=== PATIENT | male | born 1960 | race Two or more races ===

== ENCOUNTER 2022-05-18 15:47 | Outpatient (REF) | payer OTHER, SELFPAY ==
--- NOTE | ~2022-05-18 | XR_ITS ---
EXAMINATION: XR BILATERAL KNEE CLINICAL INFORMATION: Pain. COMPARISON: Right knee 06/24/2009. TECHNIQUE: 4 views each knee. FINDINGS: Right Knee: There is mild reduction in the medial and patellofemoral compartment joint space without any bony erosive changes, loose bodies or joint effusion. There is mild lateral compartment and superior patellar enthesophytes. There are no loose bodies or joint effusion seen. Left Knee: There is mild reduction in the tricompartment joint space with periarticular spurring medial compartment. No abnormal joint effusion, loose bodies or bony erosive changes. No visible acute fracture or dislocation seen. XR/XR knee RT 4V IMPRESSION: Mild degenerative changes both knees without any acute fracture or loose bodies. There is mild superior patellar and medial compartment periarticular spurring.
--- NOTE | ~2022-05-18 | XR_ITS ---
EXAMINATION: XR BILATERAL KNEE CLINICAL INFORMATION: Pain. COMPARISON: Right knee 06/24/2009. TECHNIQUE: 4 views each knee. FINDINGS: Right Knee: There is mild reduction in the medial and patellofemoral compartment joint space without any bony erosive changes, loose bodies or joint effusion. There is mild lateral compartment and superior patellar enthesophytes. There are no loose bodies or joint effusion seen. Left Knee: There is mild reduction in the tricompartment joint space with periarticular spurring medial compartment. No abnormal joint effusion, loose bodies or bony erosive changes. No visible acute fracture or dislocation seen. XR/XR knee LT 4V IMPRESSION: Mild degenerative changes both knees without any acute fracture or loose bodies. There is mild superior patellar and medial compartment periarticular spurring.
== END 2022-05-18 15:48 | disposition home or self-care (01) ==
LOC: HO.XRAY 15:47
PROVIDERS: PCP Registered Nurse; Visit Provider Registered Nurse
DX: M25.562 Pain in left knee (principal); M25.561 Pain in right knee
CPT/HCPCS: 73564

== ENCOUNTER 2022-05-28 16:26 | Outpatient (REF) | payer OTHER, SELFPAY ==
[2022-05-28 17:37] LABS: Alanine Aminotransferase 20 U/L (0-40); Albumin Level 4.5 g/dL (3.5-5.0); Alkaline Phosphatase 112 U/L (39-117); Aspartate Amino Transferase 20 U/L (5-37); Bilirubin Direct 0.2 mg/dL (0.0-0.5); Bilirubin Total 0.3 mg/dL (0.0-1.0); Total Protein 8.2 g/dL (6.5-8.0)
[2022-05-28 17:50] LABS: Phenytoin Dilantin 8.4 ug/mL (10.0-20.0)
== END 2022-05-28 16:27 | disposition home or self-care (01) ==
LOC: HO.LAB 16:26
PROVIDERS: Visit Provider Psychiatry & Neurology Neurology
DX: G40.909 Epilepsy, unspecified, not intractable, without status epilepticus (principal); Z79.899 Other long term (current) drug therapy
CPT/HCPCS: 36415; 80076; 80184; 80185

== ENCOUNTER 2024-02-16 15:22 | Outpatient (REF) | payer OTHER, SELFPAY ==
[2024-02-16 17:52] LABS: MANUAL DIFF FLAG NO
[2024-02-16 17:58] LABS: Basophils Absolute Auto 0.1 X10*3/uL (0.0-0.2); Basophils Percent Auto 0.7 % (0-2); Eosinophils Absolute Auto 0.2 X10*3/uL (0.0-0.4); Eosinophils Percent Auto 3.2 % (0-4); Hematocrit 41.2 % (42.0-52.0); Hemoglobin 14.2 g/dl (14.0-18.0); Imm Gran Abs Auto 0.01 X10*3/uL (0.00-0.03); Imm Gran Pct Auto 0.1 % (0.0-0.4); Lymphocytes Absolute Auto 2.7 X10*3/uL (1.2-4.9); Lymphocytes Percent Auto 35.1 % (20-40); Mean Corpuscular HGB Conc 34.5 g/dl (31.0-36.0); Mean Corpuscular Hemoglobin 30.8 pg (27.0-33.0); Mean Corpuscular Volume 89.4 fL (80.0-98.0); Mean Platelet Volume 11.4 fL (9.4-12.4); Monocytes Absolute Auto 0.7 X10*3/uL (0.1-1.2); Monocytes Percent Auto 8.6 % (2-11); Neutrophils Absolute Auto 3.9 x10*3/uL (2.0-8.3); Neutrophils Percent Auto 52.3 % (45-73); Platelet Count 186 X10*3/uL (160-400); Red Blood Count 4.61 X10*6/uL (4.60-5.80); Red Cell Distribution Width 13.7 % (11.0-16.0); White Blood Count 7.5 X10*3/uL (4.8-10.8)
[2024-02-16 18:33] LABS: Phenytoin Dilantin 11.3 ug/mL (10.0-20.0)
[2024-02-16 18:55] LABS: Alanine Aminotransferase 30 U/L (0-40); Albumin Level 4.1 g/dL (3.5-5.0); Alkaline Phosphatase 100 U/L (39-117); Anion Gap 13 (12-20); Aspartate Amino Transferase 24 U/L (5-37); Bilirubin Total 0.5 mg/dL (0.0-1.0); Blood Urea Nitrogen 11 mg/dL (9-16); Calcium 9.2 mg/dL (8.4-10.2); Carbon Dioxide 27 mmol/L (22-29); Chloride 104 mmol/L (96-108); Cholesterol 218 mg/dL (<200); Estimated Glomerular Filt Rate > 60; HDL Cholesterol 49 mg/dL (>40); LDL Cholesterol Calculated 133 mg/dL (<100); Potassium 3.8 mmol/L (3.3-5.1); Sodium 140 mmol/L (135-145); TSH reflex Free T4 0.98 uIU/mL (0.32-4.0); Total Protein 7.7 g/dL (6.5-8.0); Triglycerides 180 mg/dL (<150)
[2024-02-16 19:17] LABS: Glucose Random 85 mg/dL (60-115)
== END 2024-02-16 15:23 | disposition home or self-care (01) ==
LOC: HO.CHCLDS 15:22
PROVIDERS: Visit Provider Internal Medicine
DX: R56.9 Unspecified convulsions (principal)
CPT/HCPCS: 36415; 80053; 80061; 80185; 84443; 85025

== ENCOUNTER 2025-02-12 15:46 | Outpatient (REF) | payer MEDICAID, SELFPAY ==
--- OUTSIDE RECORDS SUMMARY | 2025-02-12 18:27 | XMS_ITS | Encounter Summary ---
Author Organization [employer] Address [address] [facility] 7t [place] [address] Care Team Providers Care It Auditor Name Role Phone Florian Dias MD Primary Care Prov ider Encounter Details Date Type Department Care Team (Late st Contact Info) Description 12/13/2023 Telephone [facility] CHC MED & PEDS [address] [place], [place] [phone] Florian Dias MD [address] [place], [place] [phone] Social History Tobacco Use Types Packs/Day Years Used Date Smoking Tobacco: Never Assessed Sex and Gender Information Value Date Recorded Sex Assigned at Male 09/07/2022 10:20 AM EDT Legal Sex Male 10:20 AM EDT Gender Identity Male 09/07/2022 10:20 AM EDT Sexual Orientation Straight 09/07/2022 10 :20 AM EDT documented as of this encounter Miscellaneous Notes * Telephone Encounter - Brenda Mcneill RN - 12/14/2023 10:56 AM EST Placed call to pharmacy regarding message below. Pharmacy states no issues with phenobarbital rx and pt is due for a refill. They will fill rx and let pt know. * Telephone Encounter - Aysha Hunt - 12/13/2023 4:23 PM EST Tc from pt states pharmacy is requesting a call from PCP in regards to PHENobarbital (Luminal) 32.4MG tablet documented in this encounter Plan of Treatment Not on file documented as of this encounter Visit Diagnoses Not on filedocumented in this encounter Care Teams It Auditor Relationship Specialty Start Date End Date Florian Dias MD [address] [place] [address] PCP - General Internal Medicine 10/11/23 documented as of this encounter
--- OUTSIDE RECORDS SUMMARY | 2025-02-12 18:27 | XMS_ITS | Encounter Summary ---
Author Organization [employer] Address [address] [facility] 7t [place] [address] Care Team Providers Care Beamer Helper Name Role Phone Florian Dias MD Primary Care Prov ider Encounter Details Date Type Department Care Team ([facility] st Contact Info) Description 08/14/2024 Orders Only [facility] CHC MED & PEDS [address] [place], [place] [phone] Florian Dias MD [address] [place], [place] [phone] Social History Tobacco Use Types Packs/Day Years Used Date Smoking Tobacco: Never Assessed Depression Answer Date Recorded Patient Health Questionnaire-9 Score 0 07/05/2024 Patient Health Questionnaire-9 Score 0 07/05/2024 Last PHQ-9: Questionnaire Data Not on file 0 07/05/2024 Housing Stability Answer Date Recorded What is your housing situation today? I have ashly lainez 07/05/[address] you li ve. Do you have problems with any of the following? None of the above 07/05/2024 Food Insecurity Answer Date Recorded Within the past 12 months, y ou worried that your food would run out before you got money to buy more: Never True 07/05/2024 Within the past 12 months,th e food you bought just didn't last and you didn't have enough money to get more: Never True Transportation Answer Date Recorded In the past 12 months, has l ack of transportation kept you from medical appts, meetings, work or from getting things needed for daily living? No 07/05/2024 Utilities Answer Date Recorded In the past 12 months, has t he electric, gas, oil or water company threatened to shut off services in your home? No 07/05/2024 Depression Answer Date Recorded Patient Health Questionnaire-2 Score 0 07/05/2024 Internet Access Answer Date Recorded Internet Access Q1 Yes 07/10/2024 Internet Access Q2 Not on file 07/10/2024 Sex and Gender Information Value Date Recorded Sex Assigned at Male 09/07/2022 10:20 AM EDT Legal Sex Male 10:20 AM EDT Gender Identity Male 09/07/2022 10:20 AM EDT Sexual Orientation Straight 09/07/2022 10 :20 AM EDT documented as of this encounter Plan of Treatment Not on file documented as of this encounter Visit Diagnoses Not on filedocumented in this encounter Additional Health Concerns Assessment Noted Time PHQ-9 Depression Total Score: 0 07/05/20 24 10:20 AM EDT documented as of this encounter Care Teams Beamer Helper Relationship Specialty Start Date End Date Florian Dias MD [address] [place] [phone] PCP - General Internal Medicine 10/11/23 documented as of this encounter
--- OUTSIDE RECORDS SUMMARY | 2025-02-12 18:27 | XMS_ITS | Encounter Summary ---
Author Organization [employer] Address [address] [facility] 7t [place] [address] Care Team Providers Care Candy Mixer Name Role Phone Florian Dias MD Primary Care Prov ider Reason for Visit * Reason Onset Date Comments Med Refill 02/14/2024 Encounter Details Date Type Department Care Team ([facility] st Contact Info) Description 02/14/2024 Telephone [facility] CHC MED & PEDS [address] [place], [place] [phone] Florian Dias MD [address] [place] [address] Med Refill Social History Tobacco Use Types Packs/Day Years Used Date Smoking Tobacco: Never Assessed Sex and Gender Information Value Date Recorded Sex Assigned at Male 09/07/2022 10:20 AM EDT Legal Sex Male 10:20 AM EDT Gender Identity Male 09/07/2022 10:20 AM EDT Sexual Orientation Straight 09/07/2022 10 :20 AM EDT documented as of this encounter Miscellaneous Notes * Telephone Encounter - Jo Schwab - 02/22/2024 10:21 AM EDT Please sign chart note of 02/15 to proceed with referral, thank you. * Telephone Encounter - Sona Fu - 02/14/2024 9:32 AM EDT TC from pt requesting medication refill. Medications needing refill : phenytoin ER (Dilantin) 100 MG capsule PHENobarbital (Luminal) 32.4 MG tablet To be sent to: [facility] [id number] documented in this encounter Plan of Treatment Not on file documented as of this encounter Visit Diagnoses Not on filedocumented in this encounter Care Teams Candy Mixer Relationship Specialty Start Date End Date Florian Dias MD [address] [place] [address] [place] [address] PCP - General Internal Medicine 10/11/23 documented as of this encounter
--- OUTSIDE RECORDS SUMMARY | 2025-02-12 18:27 | XMS_ITS | Clinical Summary ---
Author Organization [employer] Address [address] [facility] 7t [place] [address] Care Team Providers Care Strap Making Machine Operator Name Role Phone Florian Dias MD Primary Care Prov ider Allergies No known active allergies Medications Artificial Tears 1.4 % ophthalmic solution PLACE 2 DROPS IN EACH EYE TWICE A DAY NEEDED FOR DRY EYES 11/13/2021 Active metoprolol tartrate (Lopressor) 25 MG tablet Take 25 mg by mouth in the morning and at bedtime. 11/19/2021 Active allopurinol (Zyloprim) 300 MG tablet Take 300 mg by mouth in the morning. 03/04/2022 Active rosuvastatin (Crestor) 20 MG tablet Take 1 tablet (20 mg) by mouth at bedtime. 90 tablet 3 03/16/2024 03/16/20 25 Active PHENobarbital 32.4 MG tabletIndicatio ns:Seizure (CMS/HCC) TAKE 1 TABLET BY MOUTH THREE TIMES EVERY DAY 270 tablet 05/08/2024 Active phenytoin ER (Dilantin) 100 MG capsuleIndicati ons:Seizure (CMS/HCC) TAKE 2 CAPSULES BY MOUTH TWICE A DAY 360 capsule 05/08/2024 Active Active Problems Problem Noted Date Diagnosed Date Spondylosis of lumbar spine 12/03/2022 Arthritis of both knees 05/21/2022 Coronary arteriosclerosis 03/10/2022 History of myocardial infarction 03/10/2022 Obstructive sleep apnea syndrome 02/24/2022 Seizure disorder 01/31/2022 Assessment & Plan (07/05/2024 10:39 PM EDT): No further episode, on phenytoin and phenobarbital, will refer to neurology he lost follow up Assessment & Plan (03/16/2024 1:32 PM EDT): Followed by neurology, adequate phenytoin levels, continue current treatment Assessment & Plan (02/16/2024 8:01 PM EDT): Will renew phenytoin and phenobarbital, follow up with neurology Tubular adenoma of colon 12/24/2015 Overview (12/03/2022): Needs a repeat colonoscopy in 2019 Assessment & Plan (02/16/2024 8:03 PM EDT): Will refer for colonoscopy, needs to be repeated Gout 04/24/2014 Hyperlipidemia 04/24/2014 Assessment & Plan (07/05/2024 10:40 PM EDT): On rosucastatin 20mg, will order new labs for guidance of therapy Assessment & Plan (03/16/2024 1:33 PM EDT): Patient was off rosuvastatin will restart on 20mg, continue low fat diet, exercise encouraged weight loss, follow up in 3 months for new labs Assessment & Plan (02/16/2024 8:02 PM EDT): Patient is not taking statin, will order new labs for guidance of therapy Back disorder 04/24/2014 Obesity 04/24/2014 Osteoarthritis 04/24/2014 Resolved Problems Problem Noted Date Diagnosed Date Resolved Date Prediabetes 03/05/2022 03/16/2024 Encounters Date Type Department Care Team Description 01/19/2025 Population Health Risk Score [facility] [address] [place] [address] Provider, Population Health Generic from Last 3 Months Social History Tobacco Use Types Packs/Day Years [...] Orientation Straight 09/07/2022 10 :20 AM EDT Last Filed Vital Signs Vital Sign Reading Time Taken Comments Blood Pressure 112/68 03/16/2024 1:24 PM EDT Pulse 76 03/16/2024 1:24 PM EDT Temperature 36.2 ??C (97.2 ??F) 03/16/2024 1:24 PM ED T Respiratory Rate 20 03/16/2024 1:24 PM EDT Oxygen Saturation 98% 02/16/2024 2:16 PM EDT Inhaled Oxygen Concentration - - Weight 104 kg (230 lb) 03/16/2024 1:24 PM EDT Height 175.3 cm (5' 9 ) 03/16/2024 1:24 PM EDT Body Mass Index 33.97 03/16/2024 1:24 PM EDT Plan of Treatment Health Maintenance Due Date Last Done Comments CT Colonography 1961 Colonoscopy 1961 Colorectal Cancer Screening 1961 FIT DNA/Cologuard 1961 FIT 1961 FOBT 1961 Sigmoidoscopy 1961 Alcohol/Substance Use Screening 1973 Tobacco Screening 1973 Pneumococcal Vaccine: 50+ Years (1 of 2 - PCV) 1980 Zoster Vaccines (1 of 2) 2011 RSV Patients and Patients Aged 60 years or older (1 - Risk 60-74 years 1-dose series) 2021 COVID-19 Vaccine (4 - 2023-2 5 season) 2024 01/28/2022, 03/05/2021, 02/12/2021 Influenza Vaccine (#1) 2024 , 10/19/2016, 09/03/2011 DTaP/Tdap/Td Vaccines (3 - T d or Tdap) 01/08/2025 01/08/2015, 07/28/2007 Depression Screening 07/05/2025 07/05/2024, 07/05/2024 SDOH Screening 07/05/2025 07/05/2024 Lipid Panel 02/15/2029 02/16/2024, 03/03/2022 HIV Screening Completed 03/03/2022 Hepatitis C Screening Completed 03/03/2022 HIB Vaccines Aged Out No longer eligi ble based on patient's age to complete this topic HPV Vaccines Aged Out No longer eligi ble based on patient's age to complete this topic Hepatitis A Vaccines Aged Out No long er eligible based on patient's age to complete this topic Hepatitis B Vaccines Aged Out No long er eligible based on patient's age to complete this topic IPV Vaccines Aged Out No longer eligi ble based on patient's age to complete this topic Meningococcal Vaccine Aged Out No cehrri ebnson eligible based on patient's age to complete this topic RSV under 20 months Aged Out No longe r eligible based on patient's age to complete this topic Rotavirus Vaccines Aged Out No longer eligible based on patient's age to complete this topic Procedures Procedure Name Priority Date/Time Associated Diagnosis Comments LIPID PANEL, STANDARD Routine 02/16/2024 3:29 PM EDT Seizure (CMS/HCC) ZZZ HISTORICAL HEPATITIS C AB W/REFL TO HCV RNA, QN, PCR Routine 03/03/2022 3:36 PM EDT HIV 1/2 ANTIGEN/ANTIBODY, FOURTH GENERATION W/RFL Routine 03/03/2022 3:36 PM EDT from Last 3 Months or Most Recently Relevant to Health Maintenance Results * (ABNORMAL) Lipid Panel, Standard (02/16/2024 3:29 PM EDT) Triglycerides 180(H) <150 mg/dL [facility] Comment:Desirable Triglyceri de: less than 150 mg/dLBorderline High Triglyceride 150-199 mg/dLHigh Triglyceride: 200-499 mg/dLVery High Triglyceride: greater than or equal to 5OO mg/dL Cholesterol 218(H) <200 mg/dL [facility] Comment:Desirable Cholestero l: less than 200 mg/dLBorderline High Cholesterol: 200-239 mg/dLHigh Cholesterol: greater than 239 mg/dL LDL Cholesterol Calculated 133(H) <100 mg/dL [facility] Comment:Desirable LDL: less than 100 mg/dLNear Optimal/Above Optimal LDL: 110- 129 mg/dLBorderline High LDL: 130-159 mg/dLHigh LDL: 160-189 mg/dLVery High LDL: greater than or equal to 190 mg/dL HDL Cholesterol 49 >40 mg/dL [facility] Comment:Desirable HDL: great er than 40 mg/dL Note: This HDL assay may give artificially low results in patients with liver disease. Blood Venous blood specimen / Unknown 02/16/2024 3:29 PM EDT 02/16/2024 5:50 PM EDT us Florian Will MD LAB BLOOD ORDERABL ES Final Result [facility] [address] [place] [phone] * HEPATITIS C AB W/REFL TO HCV RNA, QN, PCR (03/03/2022 3:36 PM EDT) HEPATITIS C ANTIBODY NON-REACT DIDI NON-REACT DIDI [facility] INDEX 0.01 <1.00 [facility] Comment: ?? HCV antibody was non-reactive. There is no laboratory ?? evidence of HCV infection. ?? In most cases, no further action is required. However, if recent HCV exposure is suspected, a test for HCV RNA (test code 95325) is suggested. ?? For additional information please refer to http://[employer].Notifo/faq/TWC46x6 (This link is being provided for informational/ educational purposes only.) ?? 03/03/2022 3:36 PM EDT us Renee Farrell CASHIER TUBE ROOM HISTORICAL/NON ORDERABLE L ABS Final Result [facility] [address] * HIV 1/2 ANTIGEN/ANTIBODY,FOURTH GENERATION W/RFL (03/03/2022 3:36 PM EDT) HIV-1/2 ANTIGEN AND ANTIBODIES, 4TH GENERATION W/ REFLEX NON-REACT DIDI NON-REACT DIDI [facility] Comment: HIV-1 antigen and HIV-1/HIV-2 antibodies were not detected. There is no laboratory evidence of HIV infection. ?? PLEASE NOTE: This information has been disclosed to you from records whose confidentiality may be protected by state law. ??If your state requires such protection, then the state law prohibits you from making any further disclosure of the information without the specific written consent of the person to whom it pertains, or as otherwise permitted by law. A general authorization for the release of medical or other information is NOT sufficient for this purpose. ? For additional information please refer to http://[employer].Notifo/faq/ITY518 (This link is being provided for informational/ educational purposes only.) ? The performance of this assay has not been clinically validated in patients less than 2 years old. ?? 03/03/2022 3:36 PM EDT us Renee Farrell CASHIER TUBE ROOM LAB BLOOD ORDERABLES Final Result [facility] [address] [place] [address], from Last 3 Months or Most Recently Relevant to Health Maintenance [place] [address] [place] [address] C3 Care Teams Strap Making Machine Operator Relationship Specialty Start Date End Date Florian Dias MD [address] [place] [phone] PCP - General Internal Medicine 10/11/23
--- OUTSIDE RECORDS SUMMARY | 2025-02-12 18:27 | XMS_ITS | Clinical Summary ---
Author Organization [facility] Address [address] [place] [address] Care Team Providers Care Starchmaker Name Role Phone Angel Brewster MD Primary Care Provider [phone] Social History Tobacco Use Types Packs/Day Years Used Date Smoking Tobacco: Never Assessed Sex and Gender Information Value Date Recorded Sex Assigned at Not on file Legal Sex Male 1:55 PM EST Gender Identity Not on file Sexual Orientation Not on file Plan of Treatment Health Maintenance Due Date Last Done Comments DTaP,Tdap,and Td Vaccines (1 - Tdap) 1980 Pneumococcal Vaccine: 50+ Ye ars (1 of 1 - PCV) 2011 Zoster Vaccines (1 of 2) 2011 Cholesterol Screening (Lipid Panel) 10/07/2022 Colorectal Cancer Screening: Colonoscopy 10/07/2022 Depression Screening 10/07/2022 HIV Screening 10/07/2022 Hepatitis C Screening 10/07/2022 Social Influencers of Health Screening 10/07/2022 COVID-19 Vaccine ( - 2023-2 5 season) 2024 Influenza Vaccine (Season Ended) 2025 RSV Immunization Adult Patie nts (1 - 1-dose 75+ series) 2036 HIB Vaccines Aged Out No longer eligi [...] on patient's age to complete this topic MMR Vaccines Aged Out No longer eligi ble based on patient's age to complete this topic Meningococcal ACWY Vaccine Aged Out N o longer eligible based on patient's age to complete this topic Meningococcal B Vaccine Aged Out No l onger eligible based on patient's age to complete this topic Pneumococcal Vaccine: Pediat rics (0 to 5 Years) and At-Risk Patients (6 to 64 Years) Aged Out No longer eligible b ased on patient's age to complete this topic RSV Immunization Patients Un jacqui 20 months Aged Out No longer eligible b ased on patient's age to complete this topic Varicella Vaccines Aged Out No longer eligible based on patient's age to complete this topic Advance Directives Documents on File Type Date Recorded Patient Manager Commission Expl anation Health Care Decision (hx) 11/11/2021 AD BERGMAN DIRECTIVE Health Care Decision (hx) 11/03/2021 AD BERGMAN DIRECTIVE Care Teams Starchmaker Relationship Specialty Start Date End Date Angel Brewster MD [address] [place] [phone] PCP - General 04/07/1994
--- OUTSIDE RECORDS SUMMARY | 2025-02-12 18:27 | XMS_ITS | Encounter Summary ---
Author Organization [employer] Address [address] [facility] 7t [place] [address] Care Team Providers Care Compounder Name Role Phone Florian Dias MD Primary Care Prov ider Encounter Details Date Type Department Care Team (Late st Contact Info) Description 02/09/2024 Orders Only [facility] CHC MED & PEDS [address] [place] [address] Florian Dias MD [address] [place] [address] Social History Tobacco Use Types Packs/Day Years [...] on filedocumented in this encounter Care Teams Compounder Relationship Specialty Start Date End Date Florian Dias MD [address] [place] [address] PCP - General Internal Medicine 10/11/23 documented as of this encounter
--- OUTSIDE RECORDS SUMMARY | 2025-02-12 18:28 | XMS_ITS | Encounter Summary ---
Author Organization [employer] Address [address] [facility] 7t [place] [address] Care Team Providers Care Trolley Cleaner Name Role Phone Florian Dias MD Primary Care Prov ider Encounter Details Date Type Department Care Team (Late st Contact Info) Description 11/24/2023 Orders Only [facility] CHC MED & PEDS [address] [place] [address] Florian Dias MD [address] [place] [address] Social History Tobacco Use Types Packs/Day Years [...] on filedocumented in this encounter Care Teams Trolley Cleaner Relationship Specialty Start Date End Date Florian Dias MD [address] [place] [address] PCP - General Internal Medicine 10/11/23 documented as of this encounter
--- OUTSIDE RECORDS SUMMARY | 2025-02-12 18:28 | XMS_ITS | Encounter Summary ---
Author Organization [employer] Address [address] [facility] [address]t [place] [address] Care Team Providers Care Can Tender Name Role Phone Florian Dias MD Primary Care Prov ider Reason for Visit * Reason Comments Med Refill Encounter Details Date Type Department Care Team (Late st Contact Info) Description 11/13/2023 Refill [facility] [address] [place], [place] [phone] Name, MD Yong [address] [place] [address] Seizure (CMS/HCC) Social History Tobacco Use Types Packs/Day Years [...] documented as of this encounter Visit Diagnoses Diagnosis Seizure (CMS/HCC) Other convulsions documented in this encounter Care Teams Can Tender Relationship Specialty Start Date End Date Florian Dias MD [address] [place] [address] PCP - General Internal Medicine 10/11/23 documented as of this encounter
[2025-02-12 19:16] LABS: Alanine Aminotransferase 34 U/L (0-40); Alkaline Phosphatase 99 U/L (39-117); Aspartate Amino Transferase 33 U/L (5-37); Bilirubin Direct 0.1 mg/dL (0.0-0.5); Bilirubin Total 0.4 mg/dL (0.0-1.0); Total Protein 7.5 g/dL (6.5-8.0)
[2025-02-12 19:24] LABS: Phenytoin Dilantin 9.5 ug/mL (10.0-20.0)
== END 2025-02-12 15:47 | disposition home or self-care (01) ==
LOC: HO.LAB 15:46
PROVIDERS: PCP Internal Medicine; Visit Provider Psychiatry & Neurology Neurology
DX: G40.909 Epilepsy, unspecified, not intractable, without status epilepticus (principal)
CPT/HCPCS: 36415; 80076; 80184; 80185

== ENCOUNTER → 2025-08-13 14:40 | Outpatient (AMB) | payer MEDICAID, SELFPAY ==
--- NOTE | 2025-08-13 15:01 | A.OFFVIS_ITS ---
Intake Visit Reasons: 6 Months Allergies No Known Allergies Allergy (Verified 08/13/25 07:56) HPI Comments Details: 64 yo man with epilepsy of unknown etiology with grand-mal seizures. Seizures started when he was a few years old, which was treated for Dilantin. A few years later, with seizures stopped, he stopped taking pills. Seizures came back in his 20s when he started drinking alcohol. His last seizure was in 2021. He reported a feeling of numb tongue and confusion before the seizure when would know that it was coming. As long as he was getting his meds, he said, he was fine with no seizures. The patient is a 64-year-old male presenting with follow-up concerns regarding gout and medication management for seizures. The patient had a prior episode of gout approximately four years ago, which resolved spontaneously. However, he reports a recurrence of symptoms consistent with gout, exacerbated by standing for prolonged periods due to work. These symptoms have re-emerged recently and are causing discomfort. He also has a history of seizures, for which phenobarbital has been prescribed. The patient indicates concern regarding his current medication supply of phenobarbital and reports he will run out in two days. Notably, he attests to th e efficacy of the current regimen, as he has not experienced any seizures recently, indicating satisfactory control with the phenobarbital. [facility] Medical History (Updated 08/13/25 @ 15:02 by Tenisha Lacey MD) Dysphagia Generalized seizure disorder Gout Epilepsy Review of Systems Const Details: - Musculoskeletal: Reports recurrence of symptoms consistent with gout. - Neurologic: Denies seizures; reports efficacy with current phenobarbital regimen. Physical Exam Neuro Other: Mental Status: Alert and oriented to person, place, and time. Normal attention. Normal spontaneous speech, fluency, and comprehension. No obvious issues with mood and memory. Affect is appropriate. Cranial Nerves: CN II: Visual tabares full to confrontation, visual acuity intact. CN III, IV, : Pupils equal, round, reactive to light and accommodation. Extraocular movements are normal. CN V: Facial sensation is normal. CN VII: Facial movements symmetrical. CN VIII: Hearing intact to bedside conversation is normal. CN IX, X: Palate elevates symmetrically. CN XI: Shoulder shrug and head turn symmetrical. CN XII: Tongue midline without atrophy or fasciculations. Extrapyramidal: Full facial expressions and blinking. No rigidity. Movements are appropriate with no tremor or abnormality. Speech: Normal; no dysarthria or tremor. Assessment & Plan Assessment & Plan (1) Epilepsy: Comment: EEG at off in 2021: Slow EEG at [facility] in Oct 2021: R mikayla sharps CT brain WO at [facility] in 2007: WNL CT brain WO at [facility] in 2020: WNL. Code(s): G40.909 - Epilepsy, unspecified, not intractable, without status epilepticus Category: Medical Qualifiers: Epilepsy type: unspecified Intractability: not intractable Status epilepticus: without status epilepticus Qualified Code(s): G40.909 - Epilepsy, unspecified, not intractable, without status epilepticus (2) Generalized seizure disorder: Code(s): G40.309 - Generalized idiopathic epilepsy and epileptic syndromes, not intractable, without status epilepticus Category: Medical Plan Impression: Secondarily generalized seizure disorder controlled with meds Rec: a: Dilantin cap 100mg, 2 bid b: Phenobarb 32.4 mg tid c: Folic acid 1mg daily Medications: Refilled phenobarbital 32.4 mg PO TID 270 tabs 0RF Coding Level of Care Code Est Pt Level 4 (37924) Diagnoses Nonintractable epilepsy without status epilepticus, unspecified epilepsy type G40.909 Epilepsy type: unspecified Intractability: not intractable Status epilepticus: without status epilepticus Generalized seizure disorder G40.309
--- OUTSIDE RECORDS SUMMARY | 2025-08-13 17:06 | XMS_ITS | Encounter Summary ---
Author Organization [employer] Address [address] 7 [place] [address] Care Team Providers Care Nuclear Reactor Engineer Name Role Phone Florian Dias MD Primary Care Prov ider Reason for Visit * Reason Onset Date Comments Med Refill 02/14/2024 Encounter Details Date Type Department Care Team ([facility] st Contact Info) Description 02/14/2024 Telephone [facility] MED & PEDS [address], [place] [phone] Florian Dias MD [address] [place] [address] Med Refill Social History Tobacco Use Types [...] thank you. * Telephone Encounter - Sona Nickie - 02/14/2024 9:32 AM EDT TC from pt requesting medication refill. Medications needing refill : phenytoin ER (Dilantin) 100 MG capsule PHENobarbital (Luminal) 32.4 MG tablet To be sent to: [facility] [id number] documented in this encounter Plan of Treatment Not on file documented as of this encounter Visit Diagnoses Not on filedocumented in this encounter Care Teams Nuclear Reactor Engineer Relationship Specialty Start Date End Date Florian Dias MD [address] [place], [place] [address] [address] PCP - General Internal Medicine 10/11/23 documented as of this encounter
--- OUTSIDE RECORDS SUMMARY | 2025-08-13 17:06 | XMS_ITS | Encounter Summary ---
Author Organization [employer] Address [address] [facility] 7t [place] [address] Care Team Providers Care Food Operations Manager Name Role Phone Florian Dias MD Primary Care Prov ider Encounter Details Date Type Department Care Team ([facility] st Contact Info) Description 12/13/2023 Telephone [facility] MED & PEDS [address] [place], [place] [phone] Florian Dias MD [address] [place], [place] [phone] Social History Tobacco Use Types Packs/Day Years [...] on filedocumented in this encounter Care Teams Food Operations Manager Relationship Specialty Start Date End Date Florian Dias MD [address] [place] [id number] PCP - General Internal Medicine 10/11/23 documented as of this encounter
--- OUTSIDE RECORDS SUMMARY | 2025-08-13 17:06 | XMS_ITS | Encounter Summary ---
Author Organization [employer] Address [address] [facility] 7t [place] [address] Care Team Providers Care Kelly Machine Operator Name Role Phone Florian Dias MD Primary Care Prov ider Encounter Details Date Type Department Care Team ([facility] st Contact Info) Description 08/14/2024 Orders Only [facility] MED & PEDS [address] [place], [place] [phone] Florian Dias MD [address] [place], [place] [phone] Social History Tobacco Use Types Packs/Day Years [...] Time PHQ-9 Depression Total Score: 0 07/05/20 10:20 AM EDT documented as of this encounter Care Teams Kelly Machine Operator Relationship Specialty Start Date End Date Florian Dias MD [address] [place] [address] PCP - General Internal Medicine 10/11/23 documented as of this encounter
--- OUTSIDE RECORDS SUMMARY | 2025-08-13 17:06 | XMS_ITS | Encounter Summary ---
Author Organization [employer] Address [address] [facility] [address]t [place] [address] Care Team Providers Care Interactive Digital Media Specialist Name Role Phone Florian Dias MD Primary Care Prov ider Encounter Details Date Type Department Care Team (Late st Contact Info) Description 02/09/2024 Orders Only [facility] MED & PEDS [address] [place] [address] Florian Dias MD [address] [place] [address] Social History Tobacco Use Types Packs/Day Years [...] on filedocumented in this encounter Care Teams Interactive Digital Media Specialist Relationship Specialty Start Date End Date Florian Dias MD [address] [place] [address] PCP - General Internal Medicine 10/11/23 documented as of this encounter
--- OUTSIDE RECORDS SUMMARY | 2025-08-13 17:06 | XMS_ITS | Clinical Summary ---
Author Organization [facility] Address [address] [place] [address] Care Team Providers Care Facing Baster Jumpbasting Name Role Phone Angel Brewster MD Primary Care Provider [phone] Social History Tobacco Use Types Packs/Day Years [...] 2011 Zoster Vaccines (1 of 2) 2011 Depression Screening 11/08/2024 COVID-19 Vaccine (1 - 2023-2 5 season) 2025 Influenza Vaccine (#1) 2025 RSV Immunization Adult Patie nts (1 [...] Documents on File Type Date Recorded Patient Nail Tech Expl anation Health Care Decision (hx) 11/11/2021 AD BERGMAN DIRECTIVE Health Care Decision (hx) 11/03/2021 AD BERGMAN DIRECTIVE Care Teams Facing Baster Jumpbasting Relationship Specialty Start Date End Date Angel Brewster MD [address] [place] [address] PCP - General 04/07/1994
--- OUTSIDE RECORDS SUMMARY | 2025-08-13 17:06 | XMS_ITS | Encounter Summary ---
Author Organization [employer] Address [address] [facility] 7t [place] [address] Care Team Providers Care Kitchen Manager Name Role Phone Florian Dias MD Primary Care Prov ider Encounter Details Date Type Department Care Team (Late st Contact Info) Description 11/24/2023 Orders Only [facility] CH[facility] MED & PEDS [address] [place] [address] Florian Dias MD [address] [place] [address] Social History Tobacco Use Types Packs/Day Years [...] on filedocumented in this encounter Care Teams Kitchen Manager Relationship Specialty Start Date End Date Florian Dias MD [address] [place] [address] PCP - General Internal Medicine 10/11/23 documented as of this encounter
--- OUTSIDE RECORDS SUMMARY | 2025-08-13 17:06 | XMS_ITS | Clinical Summary ---
Author Organization [employer] Address [address] [facility] 7t [place] [address] Care Team Providers Care Gear Repairer Name Role Phone Florian Dias MD Primary [...] mouth at bedtime. 90 tablet 3 03/16/2024 Active PHENobarbital 32.4 MG tabletIndicatio ns:Seizure (CMS/HCC) (HCC) TAKE 1 TABLET BY MOUTH THREE TIMES EVERY DAY 270 tablet 05/08/2024 Active phenytoin ER (Dilantin) 100 MG capsuleIndicati ons:Seizure (CMS/HCC) (HCC) TAKE 2 CAPSULES BY MOUTH TWICE A DAY 360 capsule 05/08/2024 Active Active Problems Problem Noted Date Diagnosed Date Spondylosis of lumbar spine 12/03/2022 Arthritis of both knees 05/21/2022 Coronary arteriosclerosis 03/10/2022 History of myocardial infarction 03/10/2022 Obstructive sleep apnea syndrome 02/24/2022 Seizure disorder (CMS/HCC) 01/31/2022 Assessment & Plan (07/05/2024 10:39 PM [...] Diagnosed Date Resolved Date Prediabetes 03/05/2022 03/16/2024 Social History Tobacco Use Types Packs/Day Years [...] 76 03/16/2024 1:24 PM EDT Temperature 36.2 C (97.2 F) 03/16/2024 1:24 PM EDT Respiratory Rate 20 03/16/2024 1:24 PM EDT [...] 1961 FIT 1961 FOBT 1961 Sigmoidoscopy 1961 Disability Screening 1961 Alcohol/Substance Use Screening 1973 Tobacco Screening 1973 Pneumococcal Vaccine: 50+ Years (1 of 2 - PCV) 1980 Zoster Vaccines (1 of 2) 2011 RSV Patients and Patients Aged 60 years or older (1 - Risk 60-74 years 1-dose series) 2021 DTaP/Tdap/Td Vaccines (3 - T d or Tdap) 01/08/2025 01/08/2015, 07/28/2007 Depression Screening 07/05/2025 07/05/2024, 07/05/2024 SDOH Screening 07/05/2025 07/05/2024 COVID-19 Vaccine ( - 2024-2 6 season) 2025 01/28/2022, 03/05/2021, 02/12/2021 Influenza Vaccine (#1) 2025 , 10/19/2016, 09/03/2011 Lipid Panel 02/15/2029 02/16/2024, 03/03/2022 HIV Screening [...] this topic Meningococcal Vaccine Aged Out No cherri benson eligible based on patient's age to complete [...] 3:29 PM EDT) Triglycerides 180(H) <150 mg/dL [facility] Comment:Desirable Triglyceri de: less than 150 mg/dLBorderline High Triglyceride 150-199 mg/dLHigh Triglyceride: 200-499 mg/dLVery High Triglyceride: greater than or equal to 5OO mg/dL Cholesterol 218(H) <200 mg/dL [facility] Comment:Desirable Cholestero l: less than 200 mg/dLBorderline High Cholesterol: 200-239 mg/dLHigh Cholesterol: greater than 239 mg/dL LDL Cholesterol Calculated 133(H) <100 mg/dL [facility] Comment:Desirable LDL: less than 100 mg/dLNear Optimal/Above Optimal LDL: 110- 129 mg/dLBorderline High LDL: 130-159 mg/dLHigh LDL: 160-189 mg/dLVery High LDL: greater than or equal to 190 mg/dL HDL Cholesterol 49 >40 mg/dL [facility] Comment:Desirable HDL: great er than 40 mg/dL Note: This HDL assay may give artificially low results in patients with liver disease. Blood Venous blood specimen / Unknown 02/16/2024 3:29 PM EDT 02/16/2024 5:50 PM EDT us Florian Will MD LAB BLOOD ORDERABL ES Final Result [facility] [address] [place] [address] [phone] * HEPATITIS C AB W/REFL TO HCV RNA, QN, PCR (03/03/2022 3:36 PM EDT) HEPATITIS C ANTIBODY NON-REACT DIDI NON-REACT DIDI [facility] INDEX 0.01 <1.00 [facility] Comment: HCV antibody was non-reactive. There is no laboratory evidence of HCV infection. In most cases, no further action is required. However, if recent HCV exposure is suspected, a test for HCV RNA (test code 64257) is suggested. For additional information please refer to http://[employer]/faq/QHQ63s9 (This link is being provided for informational/ educational purposes only.) 03/03/2022 3:36 PM EDT Renee Negrete Bud PROFESSIONAL SOCCER PLAYER HISTORICAL/NON ORDERABLE L ABS Final Result Performing Organization Address [facility] Co de Phone Number [facility] [address] * HIV 1/2 ANTIGEN/ANTIBODY,FOURTH GENERATION W/RFL (03/03/2022 3:36 PM EDT) HIV-1/2 ANTIGEN AND ANTIBODIES, 4TH GENERATION W/ REFLEX NON-REACT DIDI NON-REACT DIDI [facility] Comment: HIV-1 antigen and HIV-1/HIV-2 antibodies were not detected. There is no laboratory evidence of HIV infection. PLEASE NOTE: This information has been disclosed to you from records whose confidentiality may be protected by state law. If your state requires such protection, then the state law prohibits you from making any further disclosure of the information without the specific written consent of the person to whom it pertains, or as otherwise permitted by law. A general authorization for the release of medical or other information is NOT sufficient for this purpose. For additional information please refer to http://[employer]/faq/LNM718 (This link is being provided for informational/ educational purposes only.) The performance of this assay has not been clinically validated in patients less than 2 years old. 03/03/2022 3:36 PM EDT Renee Negrete Bud PROFESSIONAL SOCCER PLAYER LAB BLOOD ORDERABLES Final Result Performing Organization Address [facility] Co de Phone Number [facility] [address] from Last 3 Months or Most Recently Relevant to Health Maintenance [place] [place] [address] C3 Care Teams Gear Repairer Relationship Specialty Start Date End Date Florian Dias MD [address] [place] [id number] PCP - General Internal Medicine 10/11/23
--- OUTSIDE RECORDS SUMMARY | 2025-08-13 17:06 | XMS_ITS | Encounter Summary ---
Author Organization [employer] Address [address] [place] [address] [address]t [place] [address] Care Team Providers Care Power Shear Operator Name Role Phone Florian Dias MD Primary Care Prov ider Reason for Visit * Reason Comments Med Refill Encounter Details Date Type Department Care Team (Late st Contact Info) Description 11/13/2023 Refill [facility] [address] [place], [place] [phone] Name, MD Yong [address] [place] [address] Seizure (CMS/HCC) Social History Tobacco Use Types [...] this encounter Visit Diagnoses Diagnosis Seizure (CMS/HCC) (HCC) Other convulsions documented in this encounter Care Teams Power Shear Operator Relationship Specialty Start Date End Date Florian Dias MD [address] [place] [address] PCP - General Internal Medicine 10/11/23 documented as of this encounter
== END ==
LOC: HO.HSM 14:40
PROVIDERS: PCP Internal Medicine; Visit Provider Psychiatry & Neurology Neurology
DX: G40.909 Epilepsy, unspecified, not intractable, without status epilepticus (principal); G40.309 Generalized idiopathic epilepsy and epileptic syndromes, not intractable, without status epilepticus
CPT/HCPCS: 99214

== ENCOUNTER → 2025-08-13 14:40 | Outpatient (BNVA) | payer MEDICAID, SELFPAY | PROVIDERS: PCP Internal Medicine; Visit Provider Psychiatry & Neurology Neurology | DX: G40.309 Generalized idiopathic epilepsy and epileptic syndromes, not intractable, without status epilepticus (principal) | CPT/HCPCS: 99212 ==